=== PATIENT | male | born 1950 | race Caucasian/White ===

== ENCOUNTER → 2021-03-15 | Outpatient (CLI) | payer MEDICARE | LOC: HEART 5 09:01 | DX: J98.6 Disorders of diaphragm (principal); R06.02 Shortness of breath | CPT/HCPCS: 94060; 94729 ==

== ENCOUNTER → 2021-03-20 | Outpatient (CLI) | payer MEDICARE | LOC: KOH-I 10:57 | DX: R41.3 Other amnesia (principal); G31.9 Degenerative disease of nervous system, unspecified; R90.89 Other abnormal findings on diagnostic imaging of central nervous system | CPT/HCPCS: 70551 ==

== ENCOUNTER → 2021-03-22 | Outpatient (CLI) | payer MEDICARE | LOC: NM 09:34 | DX: R07.9 Chest pain, unspecified (principal); R06.02 Shortness of breath; J98.11 Atelectasis | CPT/HCPCS: ECHO; 71046; 78452; 93017; 93306; A9502; J2785 ==